=== PATIENT | female | born 1955 | race Caucasian/White ===

== ENCOUNTER → 2016-12-08 | Outpatient (CLI) | payer MEDICAID ==
--- NOTE | 2016-12-09 13:02 | CT ---
CT Virtual Colonography at 1101 hour History: Previous history of colonic polyps. Unable to tolerate sedation secondary to health concerns . Previous polyps seen on colonoscopy 15 years ago.. Technique: Spiral imaging was obtained through the abdomen and pelvis with thin slice images reconstr ucted in supine and prone position. Carbon dioxide was administered through our pump through a rectal tube as per usual technique. Images were reviewed on independent workstation with volume rendering f or virtual colonoscopy. Orthogonal imaging was also reviewed. Dose reduction techniques were utilized . Findings: On the virtual colonoscopy images there is adequate distention of the colon. In the mid sig moid colon about 50 cm from the anus there is suspicion of a 10 mm polyp that was persistent on the s upine and prone imaging. Just proximal to this is a second questionable 6 mm polyp. There is no addit ional evidence of polypoid mass or constricting lesion within the colon. There is moderate diverticul osis of the sigmoid colon without diverticulitis. CT images through the abdomen and pelvis demonstrates no significant abnormalities. The liver, spleen , gallbladder, pancreas, adrenals, and kidneys demonstrate no significant abnormality. The aorta tap ers normally. There is moderate atherosclerotic calcification of the abdominal aorta. There is no asc ites. The bladder is normal. No pelvic masses are seen. There is mild to moderate anterior wedge comp ression fracture superior endplate of L1. This was present dating back at least to prior CT study fro m April 14, 2014. Impression: 1. 10 mm sessile polyp suspected mid sigmoid colon identified on supine and prone imaging about 50 cm from the anus. Consider sigmoidoscopy for confirmation. 2. Questionable 6 mm polyp identified just proximal to this in the sigmoid colon. 3. Moderate diverticulosis sigmoid colon. 4. No significant abnormalities on source CT images through the abdomen and pelvis. 5. Mild to moderate anterior wedge compression fracture superior endplate of L1 that was present dati ng back at least to prior CT study of Mar, 2014. A message was left with the office with Samantha Silva PA-C regarding the study.
== END ==
LOC: FIMAGING 10:20
PROVIDERS: ATTEND Physician Assistant
DX: K63.5 Polyp of colon (principal); K57.30 Diverticulosis of large intestine without perforation or abscess without bleeding

== ENCOUNTER 2017-03-10 07:41 | Day surgery (SDC) | payer MEDICAID ==
[2017-03-10 08:39] LABS: INR 1.19 (0.83-1.16); PROTIME(PATIENT) 15.1 SEC (12.0-15.0)
[2017-03-10] MEDS ORDERED: LR 1,000 ML IV ONE (08:45)
[2017-03-10] MEDS ORDERED: LIDOCAINE 1% 5 ML SDV ID PRN (08:45)
[2017-03-10] MEDS ORDERED: RANITIDINE 50 MG/2 ML VIAL ONE (09:17)
[2017-03-10] MEDS ORDERED: ONDANSETRON 4 MG/2 ML VIAL ONE (09:17)
[2017-03-10] MEDS ORDERED: MIDAZOLAM 2 MG/2 ML VIAL ONE (09:35)
[2017-03-10] MEDS ORDERED: PROPOFOL/EMULSION 500 MG/50 ML BOTTLE IV ONE (09:35)
[2017-03-10] MEDS ORDERED: LIDOCAINE 2% 5 ML SDV ONE ×2 (10:22→10:24)
[2017-03-10] MEDS ORDERED: PROPOFOL 200 MG/20 ML VIAL ONE (10:22)
[2017-03-10] MEDS ORDERED: fentaNYL 100 MCG/2 ML INJ ONE (11:11)
--- NOTE | 2017-03-10 11:46 | GPN ---
[f rep st] PROCEDURE NOTE PREPROCEDURE DIAGNOSIS: Heartburn and abnormal virtual colonoscopy showing sigmoid colon polyps. POSTPROCEDURE DIAGNOSIS: Normal upper endoscopy and multiple colon polyps, status post removal. PROCEDURES: 1. Esophagogastroduodenoscopy with biopsy. 2. Colonoscopy with snare. 3. Colonoscopy with biopsy. MEDICATIONS: Monitored anesthesia care. INDICATIONS: The patient is a 61-year-old female with a history of heartburn refractory to high-dos e proton pump inhibiting medication and H2 misa as well as a history of colon polyps and a recent virtual colonoscopy showing sigmoid colon polyps. She is here for upper endoscopy and lower endosc opy for further diagnosis and management. The risks and benefits of the procedure were discussed wi th the patient. Consent obtained. Risks include, but not limited to, bleeding, perforation, risks related to sedation. The patient is ASA class 3. DESCRIPTION OF PROCEDURE: The end-viewing endoscope inserted into the esophagus, into the stomach, and second portion of duodenum. The esophagus appears normal. The GE junction is located at 40 cm from incisors. There was no evidence of James's, varices, or esophagitis. The stomach is normal. Biopsies were taken using cold biopsy forceps to evaluate for Helicobacter pylori. The duodenum a nd second portion are normal. Biopsies were taken using cold biopsy forceps to evaluate for celiac disease. Next, the patient was repositioned and the adult colonoscope was advanced into the terminal ileum, w hich appeared normal. The ileocecal valve was normal. The appendiceal orifice and cecum were agustina l. There were 5 polyps removed from ascending colon using a combination of cold biopsy forceps on 2 and cold snare polypectomy on 3. The size ranged from 2-6 mm. The descending colon showed 2 small polyps measuring 2 mm in diameter, each both removed using cold biopsy forceps. The sigmoid colon showed a 1.2 mm semipedunculated polyp, which was removed using a hot snare polypectomy and placed i n sigmoid colon bottle B. there were 3 additional sigmoid colon polyps placed in sigmoid colon alex le A; removed with a combination of biopsy forceps and cold snare polypectomy ranging in size from 3 mm to 6 mm. She has moderate left-sided diverticulosis. Retroflexed views in the rectum were norm al. IMPRESSIONS: 1. Normal upper endoscopy. 2. Multiple colon polyps, status post removal. 3. Sigmoid and descending colon diverticulosis. RECOMMENDATION: 1. Advance diet as tolerated. 2. Discharge to home with escort. 3. Follow up the final pathology results from her colon biopsies. The results available within 10 days. 4. Repeat colonoscopy likely in 3 years, if 3 or more adenomatous polyps are found or if the larger polyp in the sigmoid colon was found to be adenomatous polyp. 5. Follow up in our GI clinic as previously scheduled. Thank you for allowing me to participate in the care of your patient. Please do not hesitate to ansley bruce with questions. /[id number]/MODL
[2017-03-10] MEDS ORDERED: DICYCLOMINE 20 MG TAB PO ONE (12:30)
== END 2017-03-10 13:20 | disposition home or self-care (01) ==
LOC: FSGY 07:41
PROVIDERS: ATTEND Internal Medicine Gastroenterology
PROC: 0DB78ZX Excision of Stomach, Pylorus, Via Natural or Artificial Opening Endoscopic, Diagnostic (ICD-10-PCS; principal; 2017-03-10 09:45)
PROC: 0DB98ZX Excision of Duodenum, Via Natural or Artificial Opening Endoscopic, Diagnostic (ICD-10-PCS; principal; 2017-03-10 09:45)
PROC: 0DBN8ZX Excision of Sigmoid Colon, Via Natural or Artificial Opening Endoscopic, Diagnostic (ICD-10-PCS; principal; 2017-03-10 09:45)
DX: R12 Heartburn (principal); D12.5 Benign neoplasm of sigmoid colon; D12.2 Benign neoplasm of ascending colon; K57.30 Diverticulosis of large intestine without perforation or abscess without bleeding
CPT/HCPCS: J2250; J2405; J2704; J2780; J3010

== ENCOUNTER → 2018-04-09 | Outpatient (CLI) | payer MEDICAID | LOC: FIMAGING 19:19 | PROVIDERS: ATTEND Orthopaedic Surgery Sports Medicine | DX: M75.111 Incomplete rotator cuff tear or rupture of right shoulder, not specified as traumatic (principal); M19.011 Primary osteoarthritis, right shoulder ==